=== PATIENT | male | born 1995 | race Caucasian/White ===

== ENCOUNTER 2020-11-24 01:41 | Emergency (ER) | payer OTHER ==
[2020-11-24] MEDS ORDERED: PERCOCET 5-3251 EACH PO (04:07)
[2020-11-24] MEDS ORDERED: FLOMAX 0.4 MG0.4 MG PO (04:07)
[2020-11-24] MEDS ORDERED: ZOFRAN ODT 4 MG4 MG PO (04:07)
== END 2020-11-24 04:20 | disposition home or self-care (01) ==
LOC: ER1 01:41
DX: N20.1 Calculus of ureter (principal); F17.290 Nicotine dependence, other tobacco product, uncomplicated
CPT/HCPCS: 81001; 96374; 96375; 96376; 99284; J1885; J2270; J2405

== ENCOUNTER 2021-04-12 19:42 | Emergency (ER) | payer OTHER ==
[~2021-04-12 19:42] MED LIST: FLOMAX 0.4 MG0.4 MG PO; PERCOCET 5-3251 EACH PO; ZOFRAN ODT 4 MG4 MG PO
[2021-04-12 20:43] LABS: HEMOGLOBIN 13.8 gm/dl (14.0-17.5); RED BLOOD COUNT 4.53 M/UL (4.20-5.50); WHITE BLOOD COUNT 7.6 K/UL (4.5-11.0)
[2021-04-12 20:56] LABS: BUN/CREATININE RATIO 16 (0-10)
== END 2021-04-12 22:17 | disposition home or self-care (01) ==
LOC: ER1 19:42
PROVIDERS: Emergency Medicine
DX: N23 Unspecified renal colic (principal); F17.290 Nicotine dependence, other tobacco product, uncomplicated
CPT/HCPCS: 80053; 81001; 85025; 87086; 96374; 96375; 99284; J2270; J2405